=== PATIENT | female | born 1965 ===

== ENCOUNTER 2016-11-17 13:04 | Emergency (ER) | payer OTHER ==
[2016-11-17 13:15] VITALS: BMI 36.9
[2016-11-17] MEDS ORDERED: Sodium Chloride 0.9% 1,000 ML IV ONE (13:37)
[2016-11-17] MEDS ORDERED: HYDROmorphone 1 mg/ml ISec IVP STA ×2 (13:37→15:17)
[2016-11-17] MEDS ORDERED: HYDROmorphone 1 mg/ml ISec ONE ×2 (13:46→15:40)
[2016-11-17] MEDS ORDERED: Sodium Chloride 0.9% 1,000 ML ONE (13:46)
--- NOTE | 2016-11-17 13:52 | C.PDOC ---
History Of Present Illness 51 y/o female with PMHx of "fibromyalgia" presents to ED with complaint of right sided flank pain for x3 days. Patient states normally having urinary frequency but last night noticed and abnormal urine odor. Patient reports associated hot/cold chills, sweats and a fever of 103. Patient denies dysuria or any other complaints at this time. She has no nausea or vomiting and has had normal bowel movements. She has no cough or shortness of breath. She states that she has had a "liver infection" with similar pain in the past. She is requesting "something strong" for pain, like "Dilaudid". Time Seen by Provider: 11/17/16 13:29 Chief Complaint (Nursing): Back Pain History Per: Patient History/Exam Limitations: no limitations Onset/Duration Of Symptoms: Days Past Medical History Reviewed: Historical Data, Nursing Documentation, Vital Signs Vital Signs: Last Vital Signs Temp 98.2 F 11/17/16 15:34 Pulse 91 H 11/17/16 15:34 Resp 19 11/17/16 15:34 BP 123/82 11/17/16 15:34 Pulse Ox 99 11/17/16 15:34 - Medical History PMH: Anxiety, Arthritis, Asthma, Back Problems, Depression (NOT ON ANTIDEPRESSANTS), Diabetes, Fibromyalgia, Hypercholesterolemia, Osteoporosis, Pancreatitis, Peripheral Edema, Pneumonia (LONG AGO) Surgical History: Appendectomy, Back Surgery, Tonsillectomy (AGE 7) Other Surgeries: Hysterectomy - [facility] Procedures CENTRAL VENOUS CATHETER PLACEMENT WITH GUIDANCE (12/15/13) DRESSING OF WOUND NEC (12/15/13) EXCIS DEBRIDE OF WOUND, INFECT, OR BURN (12/15/13) EXCISION OF ASCENDING COLON, ENDO, DIAGN (11/05/15) EXCISION OF DESCENDING COLON, ENDO, DIAGN (11/05/15) EXCISION OF LEFT OVARY, OPEN APPROACH (01/09/16) EXCISION OF RECTUM, OPEN APPROACH (01/09/16) EXCISION OF SIGMOID COLON, ENDO, DIAGN (11/05/15) EXCISION OF SIGMOID COLON, OPEN APPROACH (01/09/16) NONEXCIS DEBRID OF WOUND, INFECT, OR BURN (12/15/13) OTHER LOCAL DESTRUC SKIN (12/15/13) OTHER SKIN & SUBQ I D (12/15/13) RESECTION OF APPENDIX, OPEN APPROACH (01/09/16) RESECTION OF BILATERAL FALLOPIAN TUBES, OPEN APPROACH (01/09/16) RESECTION OF CERVIX, OPEN APPROACH (01/09/16) RESECTION OF LEFT OVARY, OPEN APPROACH (01/09/16) RESECTION OF UTERUS, OPEN APPROACH (01/09/16) Family History: States: Unknown Family Hx - Social History Hx Tobacco Use: Yes Hx Alcohol Use: No Hx Substance Use: No - Immunization History Hx Tetanus Toxoid Vaccination: Yes Hx Influenza Vaccination: No Hx Pneumococcal Vaccination: Yes Review Of Systems Except As Marked, All Systems Reviewed And Found Negative. Constitutional: Positive for: Fever, Chills, Sweats Eyes: Negative for: Vision Change Respiratory: Negative for: Shortness of Breath Gastrointestinal: Negative for: Nausea, Vomiting, Diarrhea Genitourinary: Positive for: Frequency Musculoskeletal: Positive for: Back Pain Skin: Negative for: Rash Neurological: Negative for: Headache Physical Exam - Physical Exam Appears: Non-toxic, No Acute Distress Skin: Normal Color, Warm Head: Atraumatic, Normacephalic Oral Mucosa: Moist Neck: Normal ROM Cardiovascular: Rhythm Regular Respiratory: Normal Breath Sounds, No Rales, No Rhonchi, No Wheezing Gastrointestinal/Abdominal: Soft, Tenderness (Superpubic Tenderness), No Guarding, No Rebound Back: CVA Tenderness (Right side CVA tenderness) Extremity: Normal ROM Neurological/Psych: Oriented x3, Normal Speech, Normal Cognition ED Course And Treatment - Laboratory Results Result Diagrams: 11/17/16 14:03 11/17/16 14:03 Lab Interpretation: Abnormal (Elevated WBC 16.2 with left shift on diff. normal LFTs, normal urine) O2 Sat by Pulse Oximetry: 98 (Room Air ) Pulse Ox Interpretation: Normal - CT Scan/US CT abdomen and pelvis Other Rad Studies (CT/US): Read By Radiologist, Radiology Report Reviewed CT/US Interpretation: Accession No. : [id number]. Patient Name / ID : BRITTANY LEVY / [id number]. Exam Date : 11/17/2016 15:18:04 ( Approved ). Study Comment : Sex / Age : F / 51Y. Creator : Onel Mccarty MD. Dictator : Onel Mccarty MD. Remote Sensing Specialist : All Terrain Vehicle Technician : Onel Mccarty MD. Approver2 : Report Date : 11/17/2016 15:46:48. My Comment : . PROCEDURE: CT abdomen and pelvis dated 11/17/16. HISTORY: Right flank pain. . Note that prior CT scan report 06/01/2016 indicates clinical history of prior appendectomy. COMPARISON: Comparison made with CT scan abdomen /pelvis dated 06/01/2016. TECHNIQUE: Contiguous axial images of the abdomen and pelvis. Oral contrast was administered. No IV contrast given. Coronal and Sagittal reformats generated. Radiation dose: Total exam DLP = 1011.88 mGy-cm. This CT exam was performed using one or more of the following dose reduction techniques: Automated exposure control, adjustment of the mA and/or kV according to patient size, and/or use of iterative reconstruction technique. FINDINGS: LOWER THORAX: Lung bases clear without focal consolidation effusion or basilar pneumothorax. Small hiatal hernia again noted. LIVER: Liver exhibits normal size measuring approximately 16.4 cm in CC dimension. Liver demonstrates normal attenuation pattern without mass collection or calcification. GALLBLADDER AND BILE DUCTS: Gallbladder is physiologically distended. No evidence of intraluminal gallbladder calculi. PANCREAS: Visualized portions the pancreas appear grossly unremarkable. SPLEEN: The spleen exhibits normal size and attenuation pattern without mass collection or calcification. ADRENALS: There are no adrenal lesions. KIDNEYS AND URETERS: Kidneys demonstrate symmetric size. No evidence of nephrolithiasis or hydronephrosis. BLADDER: Urinary bladder is incompletely distended which may account for minimal wall prominence. . No evidence of intraluminal urinary bladder calculi. REPRODUCTIVE: Changes of hysterectomy again noted. APPENDIX : The appendix not seen on this exam consistent with prior history of appendectomy however clinical correlation suggested. No obvious inflammatory changes right lower quadrant of the abdomen. BOWEL: Evaluation of the bowel is limited due to the lack of oral contrast material. The stomach is partially distended with some food debris liquid and air. Incomplete distension presumably accounts for slight thick-walled appearance. Rule out gastritis. Visualized loops of small bowel exhibit normal contour and caliber without evidence of acute mechanical small bowel obstruction. There is a moderate amount of stool within the cecum and ascending colon suggesting mild fecal retention/constipation. No definitive evidence of abnormal mural wall thickening seen. PERITONEUM: Re- demonstrated is a small fat containing umbilical hernia. . There is also a midline overlying the pelvis extending from the umbilicus to above the level of the symphysis pubis. Unremarkable. No fluid collection. No free air. LYMPH NODES: No significant/bulky adenopathy. VASCULATURE: Unremarkable. No aortic aneurysm. BONES: Minor multilevel degenerative spondylosis of the lower thoracic and lumbar spine. There are no acute compression fractures no retropulsed fragments. OTHER FINDINGS: None. IMPRESSION: No evidence of nephrolithiasis or hydronephrosis. No evidence of cholelithiasis. Hysterectomy and apparent appendectomy. Mild moderate amount stool seen within cecum ascending colon suggesting mild fecal retention. Small fat containing umbilical hernia. Reevaluation Time: 16:24 Reassessment Condition: Improved Disposition Counseled Patient/Family Regarding: Studies Performed, Diagnosis, Need For Followup, Rx Given - Disposition Referrals: [facility] [Outside] Disposition: HOME/ ROUTINE Disposition Time: 16:30 Condition: IMPROVED Additional Instructions: follow up with your provider this week for additional medications. Prescriptions: oxyCODONE/Acetaminophen [Percocet 5/325 mg Tab] 1 tab PO QID PRN #10 tab PRN Reason: Pain Instructions: Chronic Pain (ED) - Clinical Impression Clinical Impression: Fibromyalgia muscle pain, Musculoskeletal pain, chronic - PA / CLAIM PROFESSIONAL / Resident Statement MD/DO has reviewed & agrees with the documentation as recorded. MD/DO has examined the patient and agrees with the treatment plan. - Scribe Statement The provider has reviewed the documentation as recorded by the Delia Ramos All medical record entries made by the Delia were at my direction and personally dictated by me. I have reviewed the chart and agree that the record accurately reflects my personal performance of the history, physical exam, medical decision making, and the department course for this patient. I have also personally directed, reviewed, and agree with the discharge instructions and disposition.
[2016-11-17 14:07] LABS: BASO # 0.2 K/uL (0.0-0.2); EOS % 0.2 % (0.0-4.0); HEMATOCRIT 43.3 % (34.0-47.0); LYMPH # 2.9 K/uL (1.0-4.3); LYMPH % 17.8 % (20.0-40.0); MEAN CELL VOLUME 89.1 fL (81.0-99.0); MEAN CORPUSCULAR HGB CONC 32.5 g/dL (33.0-37.0); MONO # 0.6 K/uL (0.0-0.8); RED CELL DISTRIBUTION WIDTH 15.5 % (11.5-14.5); WHITE BLOOD COUNT 16.2 K/uL (4.8-10.8)
[2016-11-17 14:19] LABS: CHLORIDE 102 mmol/L (98-107); SODIUM 143 mmol/L (132-148)
[2016-11-17 14:21] LABS: BILIRUBIN,TOTAL 0.7 mg/dL (0.2-1.3); CARBON DIOXIDE 26 mmol/L (22-30); GFR AFRICAN-AMERICAN > 60
[2016-11-17 14:22] LABS: ALB/GLOB RATIO 1.6 (1.0-2.1); ALKALINE PHOSPHATASE 109 U/L (38-126); ALT/SGPT 18 U/L (9-52); AST/SGOT 22 U/L (14-36); BLOOD UREA NITROGEN 10 mg/dL (7-17); CALCIUM 9.7 mg/dl (8.6-10.4); GLUCOSE,RANDOM 146 mg/dL (65-105); RBC URINE 1 /hpf (0-3); TOTAL PROTEIN 8.3 g/dL (6.3-8.3); URINE BILIRUBIN NEGATIVE (NEGATIVE); URINE BLOOD NEGATIVE (NEGATIVE); URINE COLOR Yellow (YELLOW); URINE GLUCOSE (UA) NORMAL (Normal); URINE KETONE TRACE mg/dL (NEGATIVE); URINE LEUKOCYTE ESTERASE NEG Leu/uL (Negative); URINE PROTEIN 1+ mg/dL (NEGATIVE); URINE UROBILINOGEN NORMAL mg/dL (0.2-1.0); WBC URINE 2 /hpf (0-5)
[2016-11-17 15:35] VITALS: BP 123/82; PULSE 91; RESP 19; TEMP 98.2
--- NOTE | 2016-11-17 15:48 | CT ---
PROCEDURE: CT abdomen and pelvis dated 11/17/16. HISTORY: Right flank pain. . Note that prior CT scan report 06/01/2016 indicates clinical history of prior appendectomy COMPARISON: Comparison made with CT scan abdomen /pelvis dated 06/01/2016. TECHNIQUE: Contiguous axial images of the abdomen and pelvis. Oral contrast was administered. No IV contrast given. Coronal and Sagittal reformats generated. Radiation dose: Total exam DLP = 1011.88 mGy-cm. This CT exam was performed using one or more of the following dose reduction techniques: Automated exposure control, adjustment of the mA and/or kV according to patient size, and/or use of iterative reconstruction technique. FINDINGS: LOWER THORAX: Lung bases clear without focal consolidation effusion or basilar pneumothorax. Small hiatal hernia again noted. LIVER: Liver exhibits normal size measuring approximately 16.4 cm in CC dimension. Liver demonstrates normal attenuation pattern without mass collection or calcification. GALLBLADDER AND BILE DUCTS: Gallbladder is physiologically distended. No evidence of intraluminal gallbladder calculi. PANCREAS: Visualized portions the pancreas appear grossly unremarkable. SPLEEN: The spleen exhibits normal size and attenuation pattern without mass collection or calcification. ADRENALS: There are no adrenal lesions KIDNEYS AND URETERS: Kidneys demonstrate symmetric size. No evidence of nephrolithiasis or hydronephrosis. BLADDER: Urinary bladder is incompletely distended which may account for minimal wall prominence. . No evidence of intraluminal urinary bladder calculi REPRODUCTIVE: Changes of hysterectomy again noted. APPENDIX: The appendix not seen on this exam consistent with prior history of appendectomy however clinical correlation suggested. No obvious inflammatory changes right lower quadrant of the abdomen BOWEL: Evaluation of the bowel is limited due to the lack of oral contrast material. The stomach is partially distended with some food debris liquid and air. Incomplete distension presumably accounts for slight thick-walled appearance. Rule out gastritis. Visualized loops of small bowel exhibit normal contour and caliber without evidence of acute mechanical small bowel obstruction. There is a moderate amount of stool within the cecum and ascending colon suggesting mild fecal retention/constipation. No definitive evidence of abnormal mural wall thickening seen. PERITONEUM: Re- demonstrated is a small fat containing umbilical hernia. . There is also a midline overlying the pelvis extending from the umbilicus to above the level of the symphysis pubis. Unremarkable. No fluid collection. No free air. LYMPH NODES: No significant/bulky adenopathy VASCULATURE: Unremarkable. No aortic aneurysm. BONES: Minor multilevel degenerative spondylosis of the lower thoracic and lumbar spine. There are no acute compression fractures no retropulsed fragments. OTHER FINDINGS: None. IMPRESSION: No evidence of nephrolithiasis or hydronephrosis. No evidence of cholelithiasis. Hysterectomy and apparent appendectomy. Mild moderate amount stool seen within cecum ascending colon suggesting mild fecal retention. Small fat containing umbilical hernia.
[2016-11-17 16:21] VITALS: O2SAT 98
== END 2016-11-17 16:38 | disposition home or self-care (01) ==
LOC: C.ER 13:04
DX: M79.7 Fibromyalgia (principal)
CPT/HCPCS: 74176; 80053; 81001; 83690; 85025; 87086; 96361; 96374; 96376; 99285; J1170; J7040